=== PATIENT | male | born 1995 | race American Indian/Alaskan Native ===

== ENCOUNTER 2020-01-24 11:48 | Emergency (ER) | payer MEDICARE ==
[2020-01-24 12:06] VITALS: BP 142/96
--- NOTE | 2020-01-24 12:07 | Emergency Department Report ---
HPI - General Time Seen by Provider: 01/24/20 11:59 - HPI HPI: This is a 24-year-old -[place] male presents to the emergency department with the complaint of depression. The patient says that he has been depressed since his girlfriend 5 years ago. He also has a diagnosed history of depression but has not been on any medication for the past few years. He follows with a psychiatrist through [facility]. Today he was feeling especially down and called EMS and told them that "I did not want to be here anymore" but the patient says that this was not a reference to suicidal ideations but instead that he did not want to be at home. Overall the patient says that he is feeling depressed about his life because "it is not going away I want to." The patient specifically denies any suicidal or homicidal ideations, or any hallucinations. He also has a past medical history of hypertension but is not on medication for this as well. He denies any tobacco, illicit drug use, or any alcohol use. ED Review of Systems ROS: Stated complaint: SI Other details as noted in HPI Comment: All other systems reviewed and negative Constitutional: denies: chills, fever Respiratory: denies: cough, shortness of breath Cardiovascular: denies: chest pain Gastrointestinal: denies: abdominal pain, vomiting Musculoskeletal: denies: back pain Neurological: denies: headache, weakness Psychiatric: depression. denies: auditory hallucinations, visual hallucinations, homicidal thoughts, suicidal thoughts Physical Exam - Physical Exam Physical Exam: GENERAL: The patient is well-developed well-nourished. HENT: Normocephalic. Atraumatic. Patient has moist mucous membranes. EYES: Extraocular motions are intact. NECK: Supple. Trachea is midline. CHEST/LUNGS: Clear to auscultation. There is no respiratory distress noted. HEART/CARDIOVASCULAR: Regular. There is no tachycardia. ABDOMEN: There is no abdominal distention. SKIN: Skin is warm and dry. NEURO: The patient is awake, alert, and oriented. The patient is cooperative. Normal speech. MUSCULOSKELETAL: There is no tenderness or deformity. There is no evidence of acute injury. ED Medical Decision Making - Lab Data Result diagrams: 01/24/20 13:07 01/24/20 13:07 - Medical Decision Making This patient presents to the emergency department with a complaint of depression. Even though he made some vague complaints of "not wanting to be here" to EMS dispatch, the patient vehemently denies any suicidal ideations. He also denies any homicidal ideations or any hallucinations. Patient is awake, oriented, calm and appropriate. For all these reasons the patient does not appear to require a 1013 or involuntary inpatient stabilization. His labs have been unremarkable. Vital signs stable throughout his ED course. He was seen by the psychiatric anesthesiologist and critical care who agrees that he does not require inpatient stabilization and has provided multiple outpatient referrals. He will return to the emergency department with any worsening of his symptoms, thoughts of harming himself or others, or with any acute distress. Critical Care Time: No Critical care attestation.: If time is entered above; I have spent that time in minutes in the direct care of this critically ill patient, excluding procedure time. ED Disposition Clinical Impression: Depression Qualifiers: Depression Type: unspecified Qualified Code(s): F32.9 - Major depressive disorder, single episode, unspecified Disposition: DC-01 TO HOME OR SELFCARE Is pt being admited?: No Condition: Stable Instructions: Depression (ED), Suicide Prevention for Adults (ED) Additional Instructions: Please follow-up with the [facility] or any of the outpatient referrals given to you by the psychiatric team. Return to the emergency department immediately with any worsening of your symptoms, thoughts of harming your self or others, or with any acute distress. Referrals: [facility] [Outside] - 2-3 Days Time of Disposition: 15:04
[2020-01-24 13:35] LABS: Basophils % (Auto) 0.6 % (0.0-1.8); Eosinophils # (Auto) 0.3 K/mm3 (0.0-0.4); Eosinophils % (Auto) 5.9 % (0.0-4.3); Hematocrit 47.8 % (35.5-45.6); Hemoglobin 15.9 gm/dl (11.8-15.2); Lymphocytes % (Auto) 20.8 % (13.4-35.0); Mean Corpuscular HGB Conc 33 % (32-34); Mean Corpuscular Volume 86 fl (84-94); Monocytes # (Auto) 0.4 K/mm3 (0.0-0.8); Monocytes % (Auto) 8.4 % (0.0-7.3); Platelet Count 243 K/mm3 (140-440); Red Blood Count 5.57 M/mm3 (3.65-5.03); Red Cell Distribution Width 14.1 % (13.2-15.2)
[2020-01-24 13:52] LABS: BUN/Creatinine Ratio 11; Blood Urea Nitrogen 10 mg/dL (9-20); Calcium 9.6 mg/dL (8.4-10.2); Hemolysis Index 7
[2020-01-24 14:36] LABS: Bilirubin,Urine NEG (Negative); Blood,Urine NEG (Negative); Color,Urine Yellow (Yellow); Protein,Urine <15 mg/dL mg/dL (Negative); Urobilinogen,Urine < 2.0 mg/dL (<2.0); WBC,Urine < 1.0 /HPF (0.0-6.0)
[2020-01-24 15:23] LABS: Amphetamine Screen,Urine PRESUMPTIVE NEGATIVE; Benzodiazepines Screen,Urine PRESUMPTIVE NEGATIVE; Cannabinoid Screen,Urine PRESUMPTIVE NEGATIVE; Cocaine Screen,Urine PRESUMPTIVE NEGATIVE; Methadone Screen,Urine PRESUMPTIVE NEGATIVE; Opiate Screen,Urine PRESUMPTIVE NEGATIVE
== END 2020-01-24 15:23 | disposition home or self-care (01) ==
LOC: ED 11:48
DX: F32.89 Other specified depressive episodes (principal)
CPT/HCPCS: 36415; 80048; 80307; 80320; 81001; 85025; G0480